=== PATIENT | male | born 1985 | race Caucasian/White ===

== ENCOUNTER 2017-07-27 13:32 | Emergency (ER) | payer SELFPAY ==
[2017-07-27 13:33] VITALS: BP 128/90; PULSE 112; RESP 14; TEMP 102.1; O2SAT 96
[2017-07-27] MEDS ORDERED: SODIUM CHLOR 0.9% 1000 ML INJ 1,000 ML IV SCH (14:04)
[2017-07-27] MEDS ORDERED: MORPHINE SULFATE 4 MG/ML INJ IV PUSH ONE (14:15)
[2017-07-27] MEDS ORDERED: ONDANSETRON HCL 4 MG/2 ML VIAL IVP ONE (14:15)
[2017-07-27] MEDS ORDERED: CIPR-9 PO (14:41)
[2017-07-27] MEDS ORDERED: METR-1 PO (14:41)
[2017-07-27] MEDS ORDERED: ZOFR4TAB3 SL (14:41)
[2017-07-27] MEDS ORDERED: HYDR-3516 PO (14:41)
[2017-07-27] MEDS ORDERED: metroNIDAZOLE 500 MG TAB PO ONE (14:45)
[2017-07-27] MEDS ORDERED: ACETAMINOPHEN 325 MG TAB PO ONE (14:45)
[2017-07-27] MEDS ORDERED: CIPROFLOXACIN 500 MG TAB PO ONE (14:45)
[2017-07-27] MEDS ORDERED: ONDANSETRON ODT 4 MG TAB PO ONE (14:45)
[2017-07-27] MEDS ORDERED: ACETAMINOPHEN/HYDROcodone 325 MG/5 MG TAB PO ONE (14:45)
--- NOTE | 2017-07-27 14:53 | PD ---
HPI Chief Complaint: Flank/Kidney Pain Time Seen by Provider: 13:53 Travel History International Travel<30 days: Yes Contact w/Intl Traveler<30days: Yes Name of Country [facility]ed to[facility] Traveled to known affect area: No History of Present Illness HPI 32-year-old male that presents to the ED for evaluation of lower abdominal pain with nausea and vomiting and fever. Patient has had this for about 3 days now. Per patient he started with nausea and vomiting and progressively has become more severe and painful. The patient most of the pain initially was in the left side and today he went to an urgent care as the pain was getting more severe and he told to come here. Per patient they did UA that showed blood in the urine and there are concerning for kidney stone. Per patient his been having diarrhea since today. Abdominal pain is cramping and is mainly on the lower abdomen. He denies any flank pain to me. He states the pain mostly state on the left results on the lower right. He states that he is having difficulty urinating I feel he has urinating a lot. He denies any STD exposure. No discharge. Per patient his urine has been darker yellow which is unusual for him. He is also from [facility] and recently visiting friends. He denies any other medical issues. Allergies to penicillin ibuprofen. His been taking Tylenol with some relief of the fever be continues to have the symptoms. [facility] Social History Alcohol Use: Yes Tobacco Use: Yes Substance Use: No Allergies-Medications (Allergen,Severity, Reaction): Coded Allergies: Penicillins (Verified Allergy, Unknown, 07/27/17) ibuprofen (Verified Allergy, Unknown, 07/27/17) Reported Meds & Prescriptions Reported Meds & Active Scripts Active Flagyl (Metronidazole) 500 Mg Tab 500 Mg PO BID 10 Days Cipro (Ciprofloxacin HCl) 500 Mg Tab 500 Mg PO BID 10 Days Zofran Odt (Ondansetron Odt) 4 Mg Tab 4 Mg SL Q6HR PRN Hydrocodone-Acetaminophen 5-325 mg Tab 1 Tab PO Q6H PRN Review of Systems Except as stated in HPI: all other systems reviewed are Neg Physical Exam Narrative GENERAL: SKIN: Warm and dry. HEAD: Atraumatic. Normocephalic. EYES: Pupils equal and round. No scleral icterus. No injection or drainage. ENT: No nasal bleeding or discharge. Mucous membranes pink and moist. Tongue is midline. No uvula deviation. NECK: Trachea midline. No JVD. CARDIOVASCULAR: Regular rate and rhythm. No murmurs, S3, S4. RESPIRATORY: No accessory muscle use. Clear to auscultation. Breath sounds equal bilaterally. GASTROINTESTINAL: Abdomen soft, tender on the lower abdomen especially in the right lower quadrant and left lower quadrant, psoas test negative., nondistended. Hepatic and splenic margins not palpable. No CVA tenderness or flank pain noted. MUSCULOSKELETAL: Extremities without clubbing, cyanosis, or edema. No obvious deformities. Full range of motion of the upper and lower extremities bilaterally. 2+ pulses bilaterally. NEUROLOGICAL: Awake and alert. No obvious cranial nerve deficits. Motor grossly within normal limits. Five out of 5 muscle strength in the arms and legs. Normal speech. PSYCHIATRIC: Appropriate mood and affect; insight and judgment normal. Data Data Last Documented VS Vital Signs Date Time Temp Pulse Resp B/P (MAP) Pulse Ox O2 Delivery O2 Flow Rate FiO2 07/27/17 13:33 102.1 112 14 128/90 (103) 96 Orders Orders Morphine Inj (Morphine Inj) (07/27/17 14:15) Ondansetron Inj (Zofran Inj) (07/27/17 14:15) Sodium Chlor 0.9% 1000 Ml Inj (Ns 1000 M (07/27/17 14:04) Ciprofloxacin (Cipro) (07/27/17 14:45) Metronidazole (Flagyl) (07/27/17 14:45) Acetamin-Hydrocod 325-5 Mg ([place] 5-325 (07/27/17 14:45) Ondansetron Odt (Zofran Odt) (07/27/17 14:45) Ed Discharge Order (07/27/17 14:42) Acetaminophen (Tylenol) (07/27/17 14:45) [facility] Medical Decision Making Medical Screen Exam Complete: Yes Emergency Medical Condition: Yes Medical Record Reviewed: Yes Differential Diagnosis Sepsis versus appendicitis versus pyelonephritis versus UTI versus perforated bowel versus peritonitis versus kidney stone Narrative Course 32-year-old male that presents to the ED for evaluation of lower abdominal pain and fever. Patient was properly examined and was found to have signs and symptoms which are concerning for appendicitis. Patient has high fever 102. Is very symptomatically with lower abdominal pain. He states any urinary issues that he also having diarrhea. Per patient he had a urinalysis that did not show any sign of infection or bacteria but did show blood in the urine. I had a discussion with the patient as well as the family member of the need for further testing including CT with contrast to see if patient has appendicitis which will require surgery which I'm definite concern for. Per family and patient wanted to see if they could talk to someone about how much he would be to get the test done as there did not have insurance and they're from out of town and they were concerned about the ability to pay the bill. Financial counselor spoke with them and didn't give him a preliminary assessment of cause and there were definite concern that they would not be able to pay it and they wanted to see if we could send him home with pain medication and antibiotics and if he could go straight from here to the airport to go to [place] to get treatment as he has no insurance and denies states but he does have care at [place]. My attending Dr. Mensah was involved in the conversation and ultimately family and patient wanted to try to go per [place] to get the care they needed. Dr. Mensah and I strongly encouraged the patient to seek help immediately after he leaves the airplane and that he cannot wait to get the tests that he needs to see if this appendicitis as this could cause significant disability or . This was mentioned and console by me and Dr. Mensah multiple times. We cannot condone that the patient should travel on his condition therefore patient will have to sight out AMA. Dr. Mensah recommends PO dose of Flagyl and Cipro. Patient was given a dose of Zofran and Lortab here for pain and emesis here. Family and patient were made aware that if patient cannot get a flight tonight and patient's symptoms worsen do not hesitate and taken to the closest hospital as soon as possible. Family and patient agree with this plan. AMA: The risks of leaving against medical advice without further evaluation treatment were discussed with the patient. These risks include cardiac dysfunction, cardiac dysrhythmia, possible heart attack, possible stroke or . The patient indicated understanding of these risks and appeared to have the capacity to make this decision. Diagnosis Primary Impression: Abdominal pain Qualified Codes: R10.30 - Lower abdominal pain, unspecified Additional Impression: Left against medical advice Patient Instructions: General Instructions, Narcotic given in the ED Additional Instructions: Seek immediate help once you get to [place]. Do not wait any longer to be seen. See ED if you cannot get care immediately. Med/Other Pt SpecificInfo: Prescription(s) given Scripts Metronidazole (Flagyl) 500 Mg Tab 500 MG PO BID for Infection for 10 Days, #20 TAB 0 Refills Prov: Jhonathan Mensah MD 07/27/17 Ciprofloxacin (Cipro) 500 Mg Tab 500 MG PO BID for Infection for 10 Days, #20 TAB 0 Refills Prov: Jhonathan Mensah MD 07/27/17 Ondansetron Odt (Zofran Odt) 4 Mg Tab 4 MG SL Q6HR Y for Nausea/Vomiting, #20 TAB 0 Refills Prov: Jhonathan Mensah MD 07/27/17 Hydrocodone-Acetaminophen (Hydrocodone-Acetaminophen) 5-325 mg Tab 1 TAB PO Q6H Y for PAIN, #10 TAB 0 Refills Prov: Jhonathan Mensah MD 07/27/17 Disposition: 07 AGAINST MEDICAL ADVICE Condition: Chau Toney Jul 27, 2017 14:53
[2017-07-27 15:10] VITALS: BP 132/63
--- NOTE | 2017-07-27 17:34 | PD ---
Physical Exam Date Seen by Provider: Jul 27, 2017 Time Seen by Provider: 15:00 Narrative I'm seeing this patient with Chau Cohn PA-C. This is a 32-year-old male from [place], and presents here after being seen at an urgent care. The patient reports lower bowel pain with associated fever. Patient reports loose stools. He reports difficulty urinating secondary to the pain. Patient apparently had a urinalysis at the urgent care which showed hematuria but no evidence of infection. Data Data Last Documented VS Vital Signs Date Time Temp Pulse Resp B/P (MAP) Pulse Ox O2 Delivery O2 Flow Rate FiO2 07/27/17 15:10 75 16 132/63 (86) 100 07/27/17 13:33 102.1 Orders Orders Morphine Inj (Morphine Inj) (07/27/17 14:15) Ondansetron Inj (Zofran Inj) (07/27/17 14:15) Sodium Chlor 0.9% 1000 Ml Inj (Ns 1000 M (07/27/17 14:04) Ciprofloxacin (Cipro) (07/27/17 14:45) Metronidazole (Flagyl) (07/27/17 14:45) Acetamin-Hydrocod 325-5 Mg ([place] 5-325 (07/27/17 14:45) Ondansetron Odt (Zofran Odt) (07/27/17 14:45) Ed Discharge Order (07/27/17 14:42) Acetaminophen (Tylenol) (07/27/17 14:45) MDM Medical Record Reviewed: Yes Supervised Visit with DAAL: Yes Narrative Course 32-year-old male presents with fevers abdominal pain and loose stools. Concern is that this is a appendicitis. I evaluated the patient with OPAL Bacon. We are concerned that this could be an appendicitis. He recommended the patient have a CAT scan and blood work. They asked to see the financial counselor and find out how much a CAT scan and workup would cost. When given an estimate, he had his friend decided to leave AGAINST MEDICAL ADVICE. We discussed in detail with the patient that this could be a surgical emergency and if so he could develop sepsis and worse case scenario could . He states he understands this however cannot afford to stay here in will sign out AGAINST MEDICAL ADVICE. We did write for Cipro and Flagyl antibiotics as well as pain medication. We urged that he come back or stay however he states he will sign out AGAINST MEDICAL ADVICE and 5 back to [facility] to see a physician there. Again we discussed the risks and benefits of doing this including and he still opted to sign out AGAINST MEDICAL ADVICE. We did tell him he could come back at any time and he states of the cannot get a flight back to [facility] [place] he well. AMA: The risks of leaving against medical advice without further evaluation treatment were discussed with the patient. These risks include cardiac dysfunction, cardiac dysrhythmia, possible heart attack, possible stroke or . The patient indicated understanding of these risks and appeared to have the capacity to make this decision. Diagnosis Primary Impression: Abdominal pain Qualified Codes: R10.30 - Lower abdominal pain, unspecified Additional Impressions: Left against medical advice Fever Diarrhea Patient Instructions: General Instructions, Narcotic given in the ED Departure Forms: Tests/Procedures Additional Instruction: Seek immediate help once you get to [place]. Do not wait any longer to be seen. See ED if you cannot get care immediately. Scripts Metronidazole (Flagyl) 500 Mg Tab 500 MG PO BID for Infection for 10 Days, #20 TAB 0 Refills Prov: Jhonathan Mensah MD 07/27/17 Ciprofloxacin (Cipro) 500 Mg Tab 500 MG PO BID for Infection for 10 Days, #20 TAB 0 Refills Prov: Jhonathan Mensah MD 07/27/17 Ondansetron Odt (Zofran Odt) 4 Mg Tab 4 MG SL Q6HR Y for Nausea/Vomiting, #20 TAB 0 Refills Prov: Jhonahtan Mensah MD 07/27/17 Hydrocodone-Acetaminophen (Hydrocodone-Acetaminophen) 5-325 mg Tab 1 TAB PO Q6H Y for PAIN, #10 TAB 0 Refills Prov: Jhonathan Mensah MD 07/27/17 Disposition: 07 AGAINST MEDICAL ADVICE Condition: Stable Jhonathan Mensah MD Jul 27, 2017 17:34
== END 2017-07-27 15:12 | disposition left against medical advice (07) ==
LOC: NEPE 13:32
DX: R10.30 Lower abdominal pain, unspecified (principal); R50.9 Fever, unspecified; R19.7 Diarrhea, unspecified; R11.2 Nausea with vomiting, unspecified
CPT/HCPCS: 96374; 96375